=== PATIENT | female | born 1975 | race African-American/Black ===

== ENCOUNTER 2024-12-16 16:20 | Emergency (ER) | payer MEDICAID, SELFPAY ==
--- NOTE | ~2024-12-16 | XR_ITS ---
EXAMINATION: XR foot LT min 3V, 12/16/2024 16:57 CDT HISTORY: LT foot distal pain and swelling. No injury 3x days COMPARISON: No comparisons available. Findings: No acute fracture or malalignment. No significant degenerative changes. Soft tissues unremarkable. Impression: No acute fracture or malalignment. Reviewed, dictated and finalized at location P. Impression: No acute fracture or malalignment.
[2024-12-16 16:36] VITALS: BP 117/81; PULSE 84; RESP 16; TEMP 36.7; O2SAT 99
--- NOTE | 2024-12-16 16:56 | ED.EXTPRO ---
HPI - Extremity Problem General Chief complaint: Extremity Problem,Nontraumatic Stated complaint: L foot swelling Time Seen by Provider: 12/16/24 16:56 Source: patient, RN notes reviewed and old records reviewed Mode of arrival: ambulatory Limitations: no limitations History of Present Illness HPI Narrative: 49-year-old female presents to the [facility] with left foot swelling. Patient reports that since Monday the joints of toes 1 through 4 as well as the bottom of her for have been aching and swollen. Has taken ibuprofen. No tenderness to the base of the 5th toe. No ecchymosis. Patient denies injury. Reports that she is on her feet all day long. Onset (ago): day(s) (3) Related Data Home Medications ?Medication ?Instructions ?Recorded ?Confirmed ?Last Taken ?Type albuterol 90 mcg-budesonide 80 inh inhalation 12/16/24 Unknown History mcg/actuation HFA aerosol inhaler (Airsupra) budesonide-formoterol HFA 80 inhalation 12/16/24 Unknown History mcg-4.5 mcg/actuation aerosol inhaler bupropion HCl 150 mg 24 hr tablet, mg PO 12/16/24 Unknown History extended release cetirizine 10 mg tablet mg 12/16/24 Unknown History estradiol 0.1 mg/24 hr semiweekly 12/16/24 Unknown History transdermal patch lisinopril 5 mg tablet mg 12/16/24 Unknown History metronidazole 0.75 % (37.5 mg/5 vaginal 12/16/24 Unknown History gram) vaginal gel montelukast 10 mg tablet mg 12/16/24 Unknown History pantoprazole 40 mg tablet,delayed mg PO 12/16/24 Unknown History release progesterone micronized 100 mg mg 12/16/24 Unknown History capsule trazodone 150 mg tablet mg 12/16/24 Unknown History ziprasidone HCl 60 mg capsule mg PO 12/16/24 Unknown History Allergies Allergy/AdvReac Type Severity Reaction Status Date / Time No Known Allergies Allergy Verified 12/16/24 16:37 Review of Systems Review of Systems: All systems reviewed & are unremarkable except as noted in HPI and below Constitutional: Constitutional: Reports no additional constitutional complaints ENT: Reports system reviewed and no additional complaints, except as documented Cardiovascular: Cardiovascular: Reports no additional cardiovascular complaints, Denies chest pain and Denies dyspnea Respiratory: Respiratory: Reports no additional respiratory complaints, Denies chest congestion, Denies cough and Denies dyspnea Musculoskeletal: Musculoskeletal: Reports as per HPI Integumentary/Breasts: Skin/Breast: Reports system reviewed and no additional complaints, except as docu PMFSH Comments At the time of my signature, I reviewed and agree with the nursing past medical, surgical, social, and family history. There is no relevant family history pertinent to the patient complaint. Exam Const: General: cooperative, healthy appearing, comfortable, no acute distress, well developed, alert and well nourished Nutritional Appearance: well nourished Orientation/consciousness: patient oriented x3 Limitations: no limitations HENMT: Head: normal to inspection Eyes: General: appearance normal, both eyes and all related structures Alignment and Position: alignment normal Neck: Neck: normal visual inspection, full ROM, no lymphadenopathy and no meningeal signs Chest: Chest palpation & inspection: normal inspection of the chest Resp: Effort & Inspection: normal respiratory effort and able to speak in complete sentences Cardio: Rate: regular rate Skin: General skin exam: normal color and no rashes or lesions noted Neuro: General: patient oriented x3, gait normal, moves all extremities and no meningeal signs Cognition (Neuro): normal cognition Speech: normal speech Gait exam (Neuro): Normal gait present Extrem: General: normal to inspection, full ROM, capillary refill normal and normal gait Left lower extremity: foot Details: tenderness Location: of the great toe Location: at the MTP joint and of another digit Location: the 2nd digit, the 3rd digit, the 4th digit and at the MTP joint and toes with normal ROM; no unusual warmth, no abrasions, no lacerations and no ecchymosis Psych: Appearance: grossly normal and well kempt Mental Status: mental status grossly normal Speech and movement: Normal speech and movement present and Clear speech present Affect: normal affect Attitude: cooperative Course Course Level of Care: Express Care Visit Vital Signs Vital signs: Vital Signs Temperature 98.0 F 12/16/24 16:36 Pulse Rate 84 12/16/24 16:36 Respiratory Rate 16 12/16/24 16:36 Blood Pressure 117/81 12/16/24 16:36 Pulse Oximetry 99 12/16/24 16:36 Oxygen Delivery Room Air 12/16/24 16:36 Temperature 98.0 F 12/16/24 16:36 Pulse Rate 84 12/16/24 16:36 Respiratory Rate 16 12/16/24 16:36 Blood Pressure 117/81 12/16/24 16:36 Pulse Oximetry 99 12/16/24 16:36 Oxygen Delivery Room Air 12/16/24 16:36 Reviewed MDM - Extremity (Nontraumatic) MDM Narrative Medical decision making narrative: Patient sitting in exam room, Patient is nontoxic, vitals stable. Patient presents with MCP tenderness to the left foot on toes 1 through 4, non 5. States his BUN and for 3 days. X-ray shows no acute findings. X-ray shows osteoarthritis Patient is appropriate for outpatient treatment with close follow-up Discharge instructions reviewed with patient, as well as provided in writing per nursing staff. The instructions also include specific and strict return/GO TO THE ER as well as f/u information. All questions have been answered, and the patient deny any further questions with discharge and discharge plan. Some parts of this dictation were generated by voice recognition software and may contain typographical and/or grammatical inaccuracies. Differential Diagnosis Differential diagnosis: Likely gout and other (Arthritis) Imaging Data Radiologist's impression: EXAMINATION: XR foot LT min 3V, 12/16/2024 16:57 CDT HISTORY: LT foot distal pain and swelling. No injury 3x days COMPARISON: No comparisons available. Findings: No acute fracture or malalignment. No significant degenerative changes. Soft tissues unremarkable. Impression: No acute fracture or malalignment. Critical Care Time Critical Care Time Critical Care Time: No Discharge Plan Discharge Clinical Impression: Arthritis of left foot Patient Disposition: Home Condition: Stable Instructions: Osteoarthritis (DC) Additional Instructions: Your Xray did not show a fracture. Wear good supportive shoes at all times. Ice should be applied to help reduce swelling. It can be used for 20 to 30 minutes, every 2-3 hours while awake. Do not apply ice directly to your skin. You can alternate ibuprofen 600mg and Tylenol 650mg every 4 hours as needed for pain Please schedule a follow-up visit with your personal physician for further evaluation and treatment within 2 weeks especially if symptoms persist. Follow-up with moth exterminator or orthopedic provider For new or worsening symptoms go directly to the emergency room Patient Language: Stateless Prescriptions: New ibuprofen 600 mg tablet 600 mg PO TID PRN (Reason: fever or pain) Qty: 30 0RF No Action cetirizine 10 mg tablet metronidazole 0.75 % (37.5mg/5 gram) gel VAGINAL estradiol 0.1 mg/24 hr patch semiweekly pantoprazole 40 mg tablet,delayed release (DR/EC) PO trazodone 150 mg tablet montelukast 10 mg tablet lisinopril 5 mg tablet ziprasidone HCl 60 mg capsule PO progesterone micronized 100 mg capsule bupropion HCl 150 mg tablet extended release 24 hr PO budesonide-formoterol 80-4.5 mcg/actuation HFA aerosol inhaler INHALATION Airsupra 90-80 mcg/actuation HFA aerosol inhaler INHALATION Follow-up/Referrals: Wander Rangel Jr., DPM [Physician, Podiatry] UNKNOWN,DOCTOR [Primary Care Provider] Stand Alone Forms: Work/School Release IP Time of Disposition: 17:16
== END 2024-12-16 17:22 | disposition home or self-care (01) ==
PROVIDERS: Emergency Provider Nurse Practitioner
DX: M19.072 Primary osteoarthritis, left ankle and foot (principal)
CPT/HCPCS: 73630; 99203; G0463